=== PATIENT | female | born 1965 | race Caucasian/White ===

== ENCOUNTER 2019-01-29 08:59 | Day surgery (SDC) | payer BC ==
[~2019-01-29] VITALS: Ht 170.2 cm; Wt 113.4 kg
[~2019-01-29 08:59] MED LIST: ALLEGRA-D 2424 HOUR PO; BIOTIN2500 MCG PO; CALTRATE 600+D PO; CEPHALEXIN500 MG OR; CLONIDINE0.1 MG PO; CONTRAVE 8-90 M1 TAB PO; CYTOMEL5 MCG OR; CYTOMEL5 MCG PO; CYTOMEL50 MCG PO; FLONASE NASAL50 MCG; GERITOL COMPLETE PO; GLIPIZIDE5 MG PO; HYDROCHLOROT25 MG PO; LEVOTHYROXIN125 MCG PO; LEVOTHYROXIN150 MC1 PO; LEVOTHYROXIN150 MCG PO; LEVOTHYROXIN175 MC1 PO; LEVOTHYROXIN200 MCG PO; LEVOXYL100 MCG PO; LEVOXYL150 MCG PO; LEVOXYL75 MCG PO; LIPITOR10 M1 PO; LISINOPRIL20 MG PO; LORATADINE10 M1 PO; METFORMIN500 MG PO; METOPROL TAR25 MG PO; MONISTAT EX; MONTELUKAST SOD10 MG PO; NASONEX50 MCG/AC; OZEMPIC2 MG/1.5 M IJ; PROCTOFOAM HC10 GM RE; SERTRALINE50 MG PO; SPIRIVA IN; SYNTHROID125 MCG PO; TRIAM/HCTZ1 CAP PO; WELLBUTRIN SR150 MG PO; XANAX0.5 MG PO; ZOLOFT100 MG PO; ZOLOFT50 MG PO; ZOVIRAX400 MG PO; ZPAK PO; ZYRTEC-D AL1 OR
[2019-01-29 11:16] VITALS: BP 119/73
== END 2019-01-29 11:20 | disposition home or self-care (01) | DRG 379 ==
LOC: ENDO 08:59 → ORM 11:30 → ENDO 11:30
PROVIDERS: ATTEND Surgery
PROC: 0DJD8ZZ Inspection of Lower Intestinal Tract, Via Natural or Artificial Opening Endoscopic (ICD-10-PCS; principal; 2019-01-29)
DX: K57.31 Diverticulosis of large intestine without perforation or abscess with bleeding (principal); K64.8 Other hemorrhoids; K64.4 Residual hemorrhoidal skin tags; I10 Essential (primary) hypertension; E11.9 Type 2 diabetes mellitus without complications

== ENCOUNTER 2024-06-10 16:06 | Emergency (ER) | payer BC ==
[2024-06-10] VITALS (10 sets, daily range): BP systolic 121–157; BP diastolic 71–85
[~2024-06-10] VITALS: Ht 170.2 cm; Wt 97.0 kg
[2024-06-10] MEDS ORDERED: MOUNJARO7.5 MG IM (17:08)
[2024-06-10] MEDS ORDERED: ONDANSETRON HCl 4 MG/2 ML SDV IV ONE ×3 (17:15→22:05)
[2024-06-10] MEDS ORDERED: KETOROLAC TROMETHAMINE 30 MG/ML SDV IV ONE (17:15)
[2024-06-10] MEDS ORDERED: PROGESTERONE200 MG PO (17:24)
[2024-06-10] MEDS ORDERED: LOSARTAN POTAS100 MG PO (17:25)
[2024-06-10] MEDS ORDERED: DULOXETINE HCL30 MG MT (17:25)
[2024-06-10] MEDS ORDERED: ALPRAZOLAM0.25 MG PO (17:26)
[2024-06-10] MEDS ORDERED: ESTRADIOL1 MG PO (17:26)
[2024-06-10 17:31] LABS: BASO% 0.3 % (0-3); EOS% 0.6 % (0-8); HEMOGLOBIN 14.2 g/dl (12.0-16.0); IMMATURE GRANULOCYTES 0.3 % (0.0-5.0); LYMPH% 12.2 % (15-41); MEAN CELL VOLUME 91.3 fL CALC (80.0-100.0); MEAN CORPUSCULAR HGB 30.1 pG CALC (26.0-32.0); MONO% 4.7 % (2-13); NEUT# 9.45 thou/uL (2.00-7.15); NEUT% 81.9 % (42-76); RED BLOOD COUNT 4.71 mill/uL (4.20-5.60); RED CELL DISTRI WIDTH 12.8 % (11.5-15.5)
[2024-06-10 17:45] LABS: ALBUMIN 4.3 g/dL (3.2-5.0); ALKALINE PHOSPHATASE 54 u/l (38-126); ANION GAP 6 (6-22 (CALC)); BUN 21 mg/dL (7-17); BUN/CREATININE RATIO 20 (12-20 (CALC)); CARBON DIOXIDE 26 mmol/l (22-30); CHLORIDE 111 mmol/l (95-108); CREATININE 1.1 mg/dL (0.5-1.0); ESTIMATED GFR 59 ML/MIN (>=90 (CALC)); LIPASE 99 u/l (23-300); POTASSIUM 4.1 mmol/l (3.5-5.1); SGOT/AST 28 u/l (14-36); SODIUM 139 mmol/l (137-146); TOTAL PROTEIN 7.3 g/dL (6.3-8.2)
[2024-06-10 17:51] LABS: BILIRUBIN, TOTAL 0.6 mg/dL (0.02-1.3)
[2024-06-10 19:30] LABS: URINE BILIRUBIN - DIPSTICK Negative (NEGATIVE); URINE BLOOD DIPSTICK Negative (NEGATIVE); URINE GLUCOSE - DIPSTICK Negative (NEGATIVE); URINE KETONE 80 mg/dL (NEGATIVE); URINE LEUK ESTERASE Negative (NEGATIVE); URINE NITRITE - DIPSTICK Negative (Negative); URINE PROTEIN - DIPSTICK Negative (NEG-TRACE); URINE SPECIFIC GRAVITY 1.025; URINE UROBILINOGEN - DIPSTICK 0.2 E.U./dL (0.2)
[2024-06-10 19:32] LABS: URINE COLOR Yellow
[2024-06-10] MEDS ORDERED: MORPHINE SULFATE 4 MG/ML VIAL IV ONE (20:45)
[2024-06-10] MEDS ORDERED: HYDROmorphone HCL 2 MG/AMP IV ONE (22:05)
== END 2024-06-10 23:04 | DRG 761 ==
LOC: ED 16:06
PROVIDERS: Family Medicine
DX: N83.201 Unspecified ovarian cyst, right side (principal); I10 Essential (primary) hypertension; E11.9 Type 2 diabetes mellitus without complications; Z79.84 Long term (current) use of oral hypoglycemic drugs